=== PATIENT | female | born 2000 | race Two or more races ===

== ENCOUNTER 2023-07-29 08:35 | Inpatient (IN) | payer OTHER ==
[~2023-07-29] VITALS: Ht 157.5 cm; Wt 68.9 kg
[2023-07-29 09:15] VITALS: PULSE 126; RESP 27; O2SAT 100
[2023-07-29] MEDS: SODIUM CHLORIDE 0.9% 1,000 ML IV ONE ×2 (09:26→14:45)
[2023-07-29] MEDS: LORazepam 2MG/ML-1ML VIAL IV ONE (09:27)
[2023-07-29 09:54] LABS: Anion Gap 14 (5-15); Carbon Dioxide 20 mmol/L (20-30); Chloride 102 mmol/L (98-107); Potassium 2.8 mmol/L (3.5-5.1); Sodium 136 mmol/L (136-145)
[2023-07-29 09:58] LABS: Basophils # (auto) 0 10 ^3/uL (0-0.2); Basophils % (auto) 0.3 % (0.0-2.0); Eosinophils # (auto) 0 10 ^3/uL (0-0.8); Eosinophils % (auto) 0.2 % (0.0-7.0); Hemoglobin 12.4 g/dL (12.2-16.2); Lymphocytes # (auto) 2.5 10 ^3/uL (0.4-5.4); Lymphocytes % (auto) 21.8 % (10.0-50.0); Mean Corpuscular Hemoglobin 23.6 pg (28.0-32.0); Mean Corpuscular Hgb Conc. 31.9 g/dL (32.0-36.0); Monocytes # (auto) 1.1 10 ^3/uL (0-1.3); Monocytes % (auto) 9.5 % (0.0-12.0); Neutrophils # (auto) 7.7 10 ^3/uL (1.6-8.6); Neutrophils % (auto) 68.2 % (37.0-80.0); Red Blood Cells 5.27 10^6/uL (4.0-5.20); Red Cell Distribution Width 17.7 % (11.8-14.3); White Blood Cell 11.4 10^3/uL (4.4-10.8)
[2023-07-29 10:00] LABS: BUN/Creatinine Ratio 12.7 (10.0-20.0); Blood Urea Nitrogen 9 mg/dL (9-23); Glucose 104 mg/dL (74-106)
[2023-07-29 10:43] LABS: Urine Bacteria None Seen /hpf (None Seen)
[2023-07-29 11:08] LABS: Urine Blood 1+ /uL (Negative); Urine Clarity Turbid (Clear); Urine Color Yellow (Yellow); Urine Mucus FEW (None Seen); Urine Protein, UAD TRACE (Negative); Urine Specific Gravity 1.022 (1.001-1.035); Urine Urobilinogen Normal (Negative); Urine WBC 2 /hpf (0 - 5)
[2023-07-29] MEDS ORDERED: MORPHINE SULFATE INJ 2 MG/ml SYRG IV PRN ×4 (14:30→14:45)
[2023-07-29] MEDS ORDERED: ACETAMINOPHEN 325 MG TAB PO PRN ×2 (14:30→14:45)
[2023-07-29] MEDS ORDERED: LORazepam 0.5 MG TAB PO PRN (14:30)
[2023-07-29] MEDS ORDERED: POTASSIUM EFFERVESENT TAB 25 MEQ PO ONE (14:30)
[2023-07-29] MEDS ORDERED: NITROGLYCERIN 0.4 MG SL TAB SL PRN ×2 (14:30→14:45)
[2023-07-29] MEDS ORDERED: SODIUM CHLORIDE 0.9% 1,000 ML IV ONE (14:30)
[2023-07-29] MEDS ORDERED: HYDROcodone-ACET 5/325MG TAB PO PRN ×2 (14:30→14:45)
[2023-07-29] MEDS ORDERED: ONDANSETRON HCL 4 MG/2 ML VIAL IV PRN ×2 (14:30→14:45)
[2023-07-29] MEDS ORDERED: DOCUSATE SOD 100 MG CAP PO PRN ×2 (14:30→14:45)
[2023-07-29] MEDS: POTASSIUM EFFERVESENT TAB 25 MEQ PO ONE (15:28)
[2023-07-29 19:30] VITALS: PULSE 101; RESP 14; O2SAT 97
[2023-07-29] MEDS ORDERED: METOPROLOL TARTRATE 25 MG TAB PO SCH (22:00)
[2023-07-29 22:50] VITALS: BP 119/84; PULSE 90; RESP 18; TEMP 98; O2SAT 98
[2023-07-29] MEDS: METOPROLOL TARTRATE 25 MG TAB PO SCH (23:09)
[2023-07-30] VITALS (8 sets, daily range): BP systolic 111–124; BP diastolic 57–76; PULSE 75–102; RESP 16–18; TEMP 97.2–98.4; O2SAT 95–99
[2023-07-30] MEDS ORDERED: METO25TA93 PO (01:45)
[2023-07-30] MEDS: LORazepam 0.5 MG TAB PO PRN (04:16)
[2023-07-30 06:45] LABS: Alanine Aminotransferase 26 U/L (7-40); Albumin 5.1 g/dL (3.2-4.8); Alkaline Phosphatase 73 U/L (46-116); Anion Gap 5 (5-15); Aspartate Aminotransferase 17 U/L (13-40); BUN/Creatinine Ratio 11.8 (10.0-20.0); Bilirubin, Total 0.5 mg/dL (0.2-1.0); Blood Urea Nitrogen 8 mg/dL (9-23); Calcium 9.9 mg/dL (8.5-10.1); Carbon Dioxide 28 mmol/L (20-30); Chloride 106 mmol/L (98-107); Cholesterol 133 mg/dL (< 200); Glucose 97 mg/dL (74-106); HDL Cholesterol 46 mg/dL (40-59); LDL Cholesterol 72 mg/dL (< 100); Sodium 139 mmol/L (136-145); Total Protein 8.4 g/dL (5.7-8.2); Triglycerides 67 mg/dL (< 150)
[2023-07-30 07:06] LABS: Eosinophils # (auto) 0.1 10 ^3/uL (0-0.8); Hemoglobin 12.3 g/dL (12.2-16.2); Monocytes # (auto) 0.7 10 ^3/uL (0-1.3); Nucleated Red Blood Cells % 0.2 %
[2023-07-30 07:07] LABS: Basophils # (auto) 0 10 ^3/uL (0-0.2); Basophils % (auto) 0.4 % (0.0-2.0); Eosinophils % (auto) 0.9 % (0.0-7.0); Lymphocytes # (auto) 1.7 10 ^3/uL (0.4-5.4); Lymphocytes % (auto) 17.7 % (10.0-50.0); Mean Corpuscular Hemoglobin 23.9 pg (28.0-32.0); Mean Corpuscular Hgb Conc. 31.6 g/dL (32.0-36.0); Mean Corpuscular Volume 75.4 fL (80.0-100.0); Neutrophils # (auto) 7.1 10 ^3/uL (1.6-8.6); Red Blood Cells 5.16 10^6/uL (4.0-5.20); Red Cell Distribution Width 17.9 % (11.8-14.3); White Blood Cell 9.7 10^3/uL (4.4-10.8)
[2023-07-30 11:09] LABS: CRP High Sensitivity 0.18 mg/dL (<1.0); Magnesium 2.2 mg/dL (1.6-2.6)
[2023-07-30 11:46] LABS: Amphetamine Screen, Urine Neg (NEGATIVE)
[2023-07-30 11:47] LABS: Barbiturate Scree,Urine Neg (NEGATIVE); Benzodiazephine Screen, Urine Neg (NEGATIVE); Cannabinoid Screen, Urine Neg (NEGATIVE); Cocaine Screen, Urine Neg (NEGATIVE); Opiate Scree,Urine Neg (NEGATIVE); Phencyclidine Screen, Urine Neg (NEGATIVE)
[2023-07-30] MEDS ORDERED: LORazepam 0.5 MG TAB PO PRN (12:30)
[2023-07-30 16:51] LABS: Erythrocyte Sedimentation Rate 15 mm/hr (0-20)
[2023-07-30] MEDS ORDERED: hydrOXYzine 25 MG TAB or CAP PO PRN (20:00)
[2023-07-31 01:00] VITALS: BP 104/60; PULSE 91; RESP 17; TEMP 98.3; O2SAT 98
[2023-07-31 05:00] VITALS: BP 106/63; PULSE 105; RESP 17; TEMP 97.5; O2SAT 98
[2023-07-31 06:03] LABS: Basophils # (auto) 0 10 ^3/uL (0-0.2); Basophils % (auto) 0.3 % (0.0-2.0); Eosinophils # (auto) 0 10 ^3/uL (0-0.8); Monocytes # (auto) 0.8 10 ^3/uL (0-1.3); White Blood Cell 10.5 10^3/uL (4.4-10.8)
[2023-07-31 06:06] LABS: Eosinophils % (auto) 0.2 % (0.0-7.0); Hemoglobin 11.9 g/dL (12.2-16.2); Lymphocytes # (auto) 2.3 10 ^3/uL (0.4-5.4); Lymphocytes % (auto) 21.8 % (10.0-50.0); Mean Corpuscular Hemoglobin 24.5 pg (28.0-32.0); Mean Corpuscular Hgb Conc. 33.1 g/dL (32.0-36.0); Mean Corpuscular Volume 74.2 fL (80.0-100.0); Monocytes % (auto) 7.5 % (0.0-12.0); Neutrophils # (auto) 7.3 10 ^3/uL (1.6-8.6); Neutrophils % (auto) 70.2 % (37.0-80.0); Red Blood Cells 4.85 10^6/uL (4.0-5.20); Red Cell Distribution Width 17.6 % (11.8-14.3)
[2023-07-31 06:28] LABS: Anion Gap 11 (5-15); Carbon Dioxide 24 mmol/L (20-30); Chloride 105 mmol/L (98-107); Potassium 3.7 mmol/L (3.5-5.1); Sodium 140 mmol/L (136-145)
[2023-07-31 06:30] LABS: Calcium 9.8 mg/dL (8.7-10.4)
[2023-07-31 06:33] LABS: % Iron Saturation 6.2 % (15-50)
[2023-07-31 06:34] LABS: Glucose 89 mg/dL (74-106)
[2023-07-31 06:35] LABS: BUN/Creatinine Ratio 13.8 (10.0-20.0); Blood Urea Nitrogen 9 mg/dL (9-23); Magnesium 2.1 mg/dL (1.6-2.6)
[2023-07-31 08:00] VITALS: PULSE 113; RESP 17; O2SAT 99
[2023-07-31] MEDS: SERTRALINE HCL 50 MG TAB PO SCH (08:56)
[2023-07-31] MEDS: FERROUS SULFATE 325mg EC TAB PO SCH (08:57)
[2023-07-31 09:00] VITALS: BP_SYST 130; BP_SYST 133; BP_DIAS 68; BP_DIAS 82; PULSE 113; PULSE 81; RESP 17; TEMP 97.5; TEMP 98.3; O2SAT 94; O2SAT 99
[2023-07-31 10:43] VITALS: BP 130/82; PULSE 113; RESP 17; TEMP 98.3; O2SAT 99
[2023-07-31] MEDS ORDERED: HYDR1CAP27 PO (10:56)
[2023-07-31] MEDS ORDERED: FER325T PO (10:56)
[2023-07-31] MEDS ORDERED: SERT50TA PO (10:56)
[2023-07-31 13:00] VITALS: BP 131/80; PULSE 115; RESP 17; TEMP 98; O2SAT 99
== END 2023-07-31 14:46 | disposition home or self-care (01) | DRG 312 ==
LOC: ER 08:35 → TELE 14:21 → ER 14:21 → TELE-WESTW 22:28 → WEST WING 07-31 06:46
PROVIDERS: ADMIT Internal Medicine Pulmonary Disease; ATTEND Internal Medicine Pulmonary Disease
DX: R55 Syncope and collapse (principal); F40.01 Agoraphobia with panic disorder; E87.6 Hypokalemia; I34.1 Nonrheumatic mitral (valve) prolapse; F41.9 Anxiety disorder, unspecified; D72.829 Elevated white blood cell count, unspecified; G47.00 Insomnia, unspecified; Z81.8 Family history of other mental and behavioral disorders
CPT/HCPCS: 36415; 70450; 71045; 80048; 80053; 80061; 80307; 81001; 82728; 83540; 83550; 83735; 84443; 84484; 84702; 85025; 85652; 86141; 93005; 93306; 93886; 96361; 96374; 99291; G0378